=== PATIENT | male | born 1980 | race African-American/Black ===

== ENCOUNTER → 2017-01-28 | Outpatient (CLI) | payer OTHER ==
--- NOTE | 2017-01-28 15:10 | RAD ---
APPROVED REPORT Test Type: Exercise Stress Nurse/Tech: LESLIE Welsh Test Indications: work physical Cardiac History: No known cardiac Medications: See Electronic Medical Record Medical History: See Electronic Medical Record Resting ECG: SR Resting Heart Rate: 76 bpm Resting Blood Pressure: 135/57mmHg Pretest Chest Pain: None Nurse/Tech Notes Consent: The procedure was explained to the patient in lay terms. Informed consent was witnessed. Jose Guadalupe eout was entered into [employer]. History and Stress Test performed by KASSIE Walton, ARRT (R) (N) Stress Symptoms No chest pain or symptoms. POST EXERCISE Reason for Termination: Patient request Target HR: Yes Max HR: 180 bpm 116% of Maximum Predicted HR: 155 bpm Exercise duration: 7:57 min:sec, 3 Stage Exercise capacity: 10METs Max Blood Pressure: 159/62mmHg Blood Pressure response to exercise: Normal blood pressure response during stress. Chest Pain: No. INTERPRETATION Stress EKG Conclusion: Baseline EKG showed sinus rhythm with PAC's. No ischemic changes at peak stre ss. No arrhythmias. Conclusion 1. Treadmill exercise stress electrocardiogram did not show any diagnostic evidence of ischemia. 2. Patient had good activity tolerance.
== END | disposition home or self-care (01) ==
LOC: NM 11:14
PROVIDERS: ATTEND Nurse Practitioner Adult Health
DX: Z13.6 Encounter for screening for cardiovascular disorders (principal); M79.671 Pain in right foot; M79.672 Pain in left foot; M54.5 Low back pain; Z72.0 Tobacco use
CPT/HCPCS: 93017